=== PATIENT | male | born 1995 | race Caucasian/White ===

== ENCOUNTER 2020-09-09 17:36 | Emergency (ER) | payer OTHER ==
[~2020-09-09] VITALS: Ht 182.9 cm; Wt 163.3 kg
[2020-09-09 17:42] VITALS: BP 144/76
[2020-09-09 19:54] VITALS: BP 126/77
== END 2020-09-09 19:54 | disposition home or self-care (01) ==
LOC: MED 17:36
DX: S09.8XXA Other specified injuries of head, initial encounter (principal); V49.9XXA Car occupant (driver) (passenger) injured in unspecified traffic accident, initial encounter; Y93.89 Activity, other specified; Y92.89 Other specified places as the place of occurrence of the external cause; Y99.8 Other external cause status
CPT/HCPCS: 70450; 93005; 99284